=== PATIENT | female | born 1980 | race Caucasian/White ===

== ENCOUNTER 2020-04-30 03:16 | Emergency (ER) | payer BC ==
[~2020-04-30] VITALS: Ht 180.3 cm; Wt 56.7 kg
[~2020-04-30 03:16] MED LIST: NOHOMEMEDICATIONS; TAMIFLU OR
[2020-04-30 03:37] LABS: URINE BILIRUBIN NEGATIVE (Negative); URINE BLOOD NEGATIVE (Negative); URINE CLARITY CLEAR; URINE COLOR YELLOW; URINE GLUCOSE-RANDOM NEGATIVE (Negative); URINE KETONES TRACE (Negative); URINE LEUKOCYTES-REFLEX NEGATIVE (Negative); URINE NITRITE-REFLEX NEGATIVE (Negative); URINE PROTEIN TRACE (Negative); URINE SPECIFIC GRAVITY >= 1.030 (1.005-1.030); URINE UROBILINOGEN 0.2 E.U./dl (0.2-1.0)
[2020-04-30 04:01] LABS: CALCIUM 8.6 mg/dL (8.5-10.1); CREATININE 0.8 mg/dL (0.6-1.3); POTASSIUM 3.9 mmol/L (3.5-5.1)
[2020-04-30 04:03] LABS: MPV 8.5 fl. (7.2-11.1); RBC 4.59 mil/uL (4.20-5.00); RDW-CV 14.2 % (10.5-14.5)
[2020-04-30 04:04] LABS: ALBUMIN 4.3 g/dL (3.4-5.0); TOTAL BILIRUBIN 0.8 mg/dL (<0.1-1.0); TOTAL PROTEIN 8.2 g/dL (6.4-8.2)
[2020-04-30 04:05] LABS: HEMATOCRIT 42.3 % (37.0-47.0); HEMOGLOBIN 13.9 gm/dL (12.0-15.0); MCH 30.3 pg (26.0-34.0); MCHC 32.8 g/dL (28.0-37.0); MCV 92.3 fL (80.0-100.0); NUCLEATED RBCS 0 /100WBC; PLATELET COUNT* 288 thou/uL (150-400); WBC 12.4 thou/uL (4.0-11.0)
[2020-04-30] MEDS ORDERED: FLAGYL500 M1 PO (05:01)
[2020-04-30] MEDS ORDERED: ZOFRAN ODT4 MG PO (05:01)
[2020-04-30] MEDS ORDERED: HYDROCODON-ACE1 EAC8 PO (05:01)
[2020-04-30 05:10] VITALS: BP 131/58
[2020-04-30 06:08] LABS: ABSOLUTE LYMPHOCYTES 0.4 thou/uL (0.8-5.3); ABSOLUTE MONOCYTES 0.2 thou/uL (0.0-1.2); ABSOLUTE NEUTROPHILS 11.8 thou/uL (1.6-8.1); PLATELET ESTIMATE ADEQUATE
== END 2020-04-30 05:05 | disposition home or self-care (01) ==
LOC: M.ERS 03:16
PROVIDERS: Emergency Medicine
DX: K52.9 Noninfective gastroenteritis and colitis, unspecified (principal); Z20.828 Contact with and (suspected) exposure to other viral communicable diseases; F17.210 Nicotine dependence, cigarettes, uncomplicated; Z88.5 Allergy status to narcotic agent